=== PATIENT | male | born 1955 | race African-American/Black ===

== ENCOUNTER → 2019-10-30 | Outpatient (CLI) | payer MEDICAID ==
[~2019-10-30] MED LIST: B50 PO; CARV25TA47 PO; HYDR100T26 PO; OMEP20CA14 PO
== END | disposition home or self-care (01) ==
LOC: LAB 09:47
PROVIDERS: ATTEND Neurological Surgery
DX: Z01.818 Encounter for other preprocedural examination (principal); Z11.59 Encounter for screening for other viral diseases
CPT/HCPCS: C9803; U0003

== ENCOUNTER 2019-11-02 06:33 | Inpatient (IN) | payer MEDICAID ==
[~2019-11-02] VITALS: Ht 180.3 cm; Wt 86.2 kg
[2019-11-02] VITALS (55 sets, daily range): BP systolic 109–174; BP diastolic 61–104
[~2019-11-02 06:33] MED LIST changes: +LACTATED RINGERS 1,000 ML IV SCH
[2019-11-02] MEDS ORDERED: THROMBIN (BOVINE) 5000 UNITS/VIAL TOP ONE (06:43)
[2019-11-02] MEDS ORDERED: LIDOCAINE HCL/EPINEPHRINE 1%-EPI 1:100,000 20 ML VIAL ONE (06:43)
[2019-11-02] MEDS ORDERED: BACITRACIN 50,000 UNITS/VIAL ONE (06:44)
[2019-11-02] MEDS ORDERED: DEXAMETHASONE 4MG/ML 1ML VIAL ONE (07:30)
[2019-11-02] MEDS ORDERED: PROPOFOL 200MG/20ML VIAL IV ONE (07:30)
[2019-11-02] MEDS ORDERED: ROCURONIUM BROMIDE 10MG/ML VIAL 5ML IV ONE (07:30)
[2019-11-02] MEDS ORDERED: HYDROMORPHONE HCL/PF 2MG/ML (OR) ONE ×2 (07:31→08:16)
[2019-11-02] MEDS ORDERED: CEFAZOLIN SODIUM 1000MG/VIAL ONE (07:31)
[2019-11-02 07:41] LABS: PARTIAL THROMBOPLASTIN TIME 33.9 sec (23.4-31.0); PROTHROMBIN TIME 10.6 sec (9.6-11.0)
[2019-11-02 07:42] LABS: BASOPHILS % 0.9 % (0.0-2.0); EOSINOPHILS % 1.9 % (0.0-5.0); HEMATOCRIT. 35.8 % (42.0-52.0); HEMOGLOBIN. 12.2 g/dL (14.0-18.0); LYMPHOCYTES % 35.1 % (20.0-50.0); MEAN CORPUSCULAR HEMOGLOBIN 30.4 pg (28.0-32.0); MEAN CORPUSCULAR VOLUME 89.4 fL (80.0-94.0); MEAN PLATELET VOLUME 8.9 fl (7.4-10.4); MONOCYTES % 8.7 % (2.0-8.0); NEUTROPHILS % 53.4 % (40.0-76.0); PLATELET 169 x1000/uL (130-400); RED CELL DISTRIBUTION WIDTH 13.6 % (11.6-14.6)
[2019-11-02] MEDS ORDERED: HYDRALAZINE 20MG/ML VIAL ONE ×2 (08:11→10:00)
[2019-11-02] MEDS ORDERED: VECURONIUM BROMIDE 10 MG/VIAL IV ONE (08:19)
[2019-11-02 08:54] LABS: CLARITY URINE CLEAR (CLEAR); COLOR URINE YELLOW (YELLOW); KETONES URINE NEGATIVE (NEGATIVE); LEUKOCYTE ESTERASE URINE NEGATIVE (NEGATIVE); NITRITE URINE NEGATIVE (NEGATIVE); OCCULT BLOOD URINE NEGATIVE (NEGATIVE); PROTEIN URINE 3+ (NEGATIVE); SPECIFIC GRAVITY URINE 1.013 (1.005-1.030)
[2019-11-02] MEDS ORDERED: NEOSTIGMINE METHYLSULFATE 1MG/ML 10 ML VIAL ONE (09:15)
[2019-11-02] MEDS ORDERED: GLYCOPYRROLATE 0.2 MG/ML 2ML VIAL ONE (09:16)
[2019-11-02] MEDS: NICARDIPINE 100 MG in SODIUM CHLORIDE 0.9% 100 ML IV PRN ×2 (10:15→20:48)
[2019-11-02] MEDS ORDERED: IPRATROPIUM/ALBUTEROL 0.5-3(2.5)MG/3ML NEB HHN PRN (10:30)
[2019-11-02] MEDS ORDERED: ONDANSETRON HCL 4MG/2ML INJ IV PRN (10:30)
[2019-11-02] MEDS: DEXT 5%/LACTATED RINGERS 1,000 ML IV SCH ×2 (10:37→20:05)
[2019-11-02] MEDS: MORPHINE SULFATE 4 MG/ML CPJ (NOT FOR IM USE) IV PRN ×3 (10:50→20:04)
[2019-11-02] MEDS: DEXAMETHASONE 4MG/ML 1ML VIAL IV SCH ×3 (12:13→23:32)
[2019-11-02] MEDS ORDERED: CEFAZOLIN 1000MG PREMIX 50 ML IV SCH (14:00)
[2019-11-02] MEDS ORDERED: CEFAZOLIN SODIUM 1000MG/VIAL IV SCH (14:00)
[2019-11-02] MEDS: OMEPRAZOLE 20MG CAPSULE EXTENDED RELEASE PO SCH (17:00)
[2019-11-02] MEDS: CEFAZOLIN 1000MG PREMIX 50 ML IV SCH (17:52)
[2019-11-02] MEDS ORDERED: CARVEDILOL 12.5MG TABLET PO SCH (21:00)
[2019-11-02] MEDS ORDERED: HYDRALAZINE HCL 100MG TABLET PO SCH (21:00)
[2019-11-03] VITALS (68 sets, daily range): BP systolic 0–188; BP diastolic -1–142
[2019-11-03] MEDS: NICARDIPINE 100 MG in SODIUM CHLORIDE 0.9% 100 ML IV PRN ×2 (02:09→12:29)
[2019-11-03] MEDS: MORPHINE SULFATE 4 MG/ML CPJ (NOT FOR IM USE) IV PRN ×5 (02:10→21:19)
[2019-11-03] MEDS: DEXAMETHASONE 4MG/ML 1ML VIAL IV SCH (05:34)
[2019-11-03] MEDS: OMEPRAZOLE 20MG CAPSULE EXTENDED RELEASE PO SCH ×2 (05:34→16:45)
[2019-11-03] MEDS: CEFAZOLIN 1000MG PREMIX 50 ML IV SCH ×2 (06:31→18:11)
[2019-11-03] MEDS: DEXT 5%/LACTATED RINGERS 1,000 ML IV SCH ×3 (06:32→19:57)
[2019-11-03] MEDS: HYDRALAZINE HCL 100MG TABLET PO SCH ×2 (09:00→20:06)
[2019-11-03] MEDS: CARVEDILOL 12.5MG TABLET PO SCH ×2 (09:00→20:06)
[2019-11-03] MEDS ORDERED: DIPHENHYDRAMINE INJ IV PRN (10:00)
[2019-11-03] MEDS ORDERED: ONDANSETRON INJ IV PRN (10:00)
[2019-11-03] MEDS ORDERED: NALOXONE INJ IV PRN (10:00)
[2019-11-03] MEDS ORDERED: HYDROMORPHONE PCA 10MG/50ML IV PRN (10:00)
[2019-11-03] MEDS ORDERED: SODIUM CHLORIDE 0.9% 1,000 ML IV SCH (15:30)
[2019-11-03] MEDS: OXYCODONE HCL/ACETAMINOPHEN 5/325MG TABLET PO PRN (21:46)
[2019-11-03 22:05] LABS: HEPATITIS B SURFACE ANTIGEN NEGATIVE
[2019-11-04] VITALS: BP 140/71
[2019-11-04] MEDS: MORPHINE SULFATE 4 MG/ML CPJ (NOT FOR IM USE) IV PRN ×3 (00:35→11:58)
[2019-11-04 04:00] VITALS: BP 144/80
[2019-11-04 06:24] LABS: BASOPHILS % 0.1 % (0.0-2.0); HEMATOCRIT. 35.1 % (42.0-52.0); HEMOGLOBIN. 11.9 g/dL (14.0-18.0); LYMPHOCYTES % 8.8 % (20.0-50.0); MEAN CORPUSCULAR HEMOGLOBIN 30.4 pg (28.0-32.0); MEAN PLATELET VOLUME 9.1 fl (7.4-10.4); MONOCYTES % 3.2 % (2.0-8.0); NEUTROPHILS % 87.9 % (40.0-76.0); PLATELET 190 x1000/uL (130-400); RED CELL DISTRIBUTION WIDTH 13.6 % (11.6-14.6)
[2019-11-04] MEDS: CEFAZOLIN 1000MG PREMIX 50 ML IV SCH (06:35)
[2019-11-04] MEDS: OMEPRAZOLE 20MG CAPSULE EXTENDED RELEASE PO SCH ×2 (06:35→17:08)
[2019-11-04 06:37] LABS: CHLORIDE 104 mEq/L (98-107)
[2019-11-04] MEDS: OXYCODONE HCL/ACETAMINOPHEN 5/325MG TABLET PO PRN ×2 (06:41→17:38)
[2019-11-04 06:51] LABS: PHOSPHORUS 3.9 mg/dL (2.5-4.9)
[2019-11-04 08:00] VITALS: BP 145/89
[2019-11-04] MEDS: HYDRALAZINE HCL 100MG TABLET PO SCH ×2 (09:12→21:20)
[2019-11-04] MEDS: CARVEDILOL 12.5MG TABLET PO SCH ×2 (09:12→21:20)
[2019-11-04] MEDS: CLONIDINE 0.1MG TABLET PO PRN (11:56)
[2019-11-04 12:00] VITALS: BP 145/79
[2019-11-04 16:00] VITALS: BP 136/76
[2019-11-04] MEDS: LACTULOSE 20G/30ML UDC PO SCH ×2 (17:08→21:21)
[2019-11-04] MEDS: DOCUSATE SODIUM 100MG CAPSULE PO SCH (17:08)
[2019-11-04 20:00] VITALS: BP 137/87
[2019-11-04] MEDS: POLYETHYLENE GLYCOL 3350 (17GM) 1 DOSE PACK PO SCH (21:24)
[2019-11-05] VITALS: BP 159/90
[2019-11-05] MEDS: MORPHINE SULFATE 4 MG/ML CPJ (NOT FOR IM USE) IV PRN ×4 (00:16→21:20)
[2019-11-05] MEDS: CLONIDINE 0.1MG TABLET PO PRN ×4 (02:09→19:42)
[2019-11-05 04:00] VITALS: BP 162/69
[2019-11-05] MEDS: OXYCODONE HCL/ACETAMINOPHEN 5/325MG TABLET PO PRN ×2 (06:27→15:04)
[2019-11-05 06:49] LABS: BASOPHILS % 0.1 % (0.0-2.0); HEMATOCRIT. 35.4 % (42.0-52.0); HEMOGLOBIN. 11.9 g/dL (14.0-18.0); LYMPHOCYTES % 16.8 % (20.0-50.0); MEAN CORPUSCULAR HEMOGLOBIN 30.1 pg (28.0-32.0); MEAN CORPUSCULAR VOLUME 89.4 fL (80.0-94.0); MEAN PLATELET VOLUME 8.9 fl (7.4-10.4); NEUTROPHILS % 76.1 % (40.0-76.0); PLATELET 183 x1000/uL (130-400); RED BLOOD CELL COUNT 3.96 mill/uL (4.7-6.1); RED CELL DISTRIBUTION WIDTH 13.3 % (11.6-14.6)
[2019-11-05] MEDS: OMEPRAZOLE 20MG CAPSULE EXTENDED RELEASE PO SCH ×2 (06:50→17:43)
[2019-11-05 07:07] LABS: PHOSPHORUS 3.5 mg/dL (2.5-4.9)
[2019-11-05 08:00] VITALS: BP 182/12
[2019-11-05 08:07] LABS: HIV SCREEN 4G Non Reactive (Non Reactive)
[2019-11-05] MEDS ORDERED: AMLODIPINE 5MG TABLET PO SCH (09:00)
[2019-11-05] MEDS: DOCUSATE SODIUM 100MG CAPSULE PO SCH ×2 (10:33→17:43)
[2019-11-05] MEDS: LACTULOSE 20G/30ML UDC PO SCH (10:33)
[2019-11-05] MEDS: CARVEDILOL 12.5MG TABLET PO SCH ×2 (10:35→21:16)
[2019-11-05] MEDS: HYDRALAZINE HCL 100MG TABLET PO SCH ×2 (10:39→21:17)
[2019-11-05 12:00] VITALS: BP 161/104
[2019-11-05 13:10] LABS: A/G RATIO 0.8 (0.7-1.7); ALBUMIN 2.8 g/dL (2.9-4.4); ALPHA-1-GLOBULIN 0.2 g/dL (0.0-0.4); ALPHA-2-GLOBULIN 0.8 g/dL (0.4-1.0); BETA GLOBULIN 1.2 g/dL (0.7-1.3); GAMMA GLOBULINS 1.5 g/dL (0.4-1.8); GLOBULIN TOTAL 3.7 g/dL (2.2-3.9); M-SPIKE Not Observed g/dL (Not Observed); TOTAL PROTEIN SERUM 6.5 g/dL (6.0-8.5)
[2019-11-05 16:00] VITALS: BP 162/110
[2019-11-05 17:10] LABS: ANTI-DNA DOUBLE STRANDED QUANT 6 IU/mL (0-9); ANTI-NUCLEAR ANTIBODIES DIRECT Positive (Negative)
[2019-11-05 20:00] VITALS: BP 223/133
[2019-11-05] MEDS ORDERED: HYDRALAZINE 20MG/ML VIAL IV PRN (20:30)
[2019-11-05] MEDS ORDERED: HYDRALAZINE 5 MG in SODIUM CHLORIDE 0.9% 49.5 ML IV PRN (20:45)
[2019-11-05] MEDS: POLYETHYLENE GLYCOL 3350 (17GM) 1 DOSE PACK PO SCH ×2 (21:00→21:17)
[2019-11-06] VITALS: BP 148/101
[2019-11-06] MEDS: CLONIDINE 0.1MG TABLET PO PRN ×3 (01:32→12:53)
[2019-11-06] MEDS: OXYCODONE HCL/ACETAMINOPHEN 5/325MG TABLET PO PRN ×2 (01:46→09:29)
[2019-11-06 04:00] VITALS: BP 148/99
[2019-11-06 05:46] LABS: BASOPHILS % 0.3 % (0.0-2.0); EOSINOPHILS % 0.1 % (0.0-5.0); HEMATOCRIT. 37.4 % (42.0-52.0); HEMOGLOBIN. 12.6 g/dL (14.0-18.0); LYMPHOCYTES % 32.6 % (20.0-50.0); MEAN CORPUSCULAR HEMOGLOBIN 30.1 pg (28.0-32.0); MEAN CORPUSCULAR VOLUME 89.1 fL (80.0-94.0); MEAN PLATELET VOLUME 8.9 fl (7.4-10.4); MONOCYTES % 9.9 % (2.0-8.0); NEUTROPHILS % 57.1 % (40.0-76.0); PLATELET 167 x1000/uL (130-400); RED BLOOD CELL COUNT 4.19 mill/uL (4.7-6.1); RED CELL DISTRIBUTION WIDTH 13.4 % (11.6-14.6)
[2019-11-06 06:00] LABS: PHOSPHORUS 3.3 mg/dL (2.5-4.9)
[2019-11-06 08:00] VITALS: BP 124/98
[2019-11-06] MEDS: DOCUSATE SODIUM 100MG CAPSULE PO SCH ×2 (09:28→18:14)
[2019-11-06] MEDS: FAMOTIDINE 20MG TABLET PO SCH (09:28)
[2019-11-06] MEDS: AMLODIPINE 10MG TABLET PO SCH (09:28)
[2019-11-06] MEDS: HYDRALAZINE HCL 100MG TABLET PO SCH ×2 (09:29→20:53)
[2019-11-06] MEDS: CARVEDILOL 12.5MG TABLET PO SCH ×2 (09:29→20:53)
[2019-11-06 10:09] LABS: GLOMERULAR BASEMENT MEMB AB 14 units (0-20)
[2019-11-06 12:00] VITALS: BP 153/101
[2019-11-06] MEDS: MORPHINE SULFATE 4 MG/ML CPJ (NOT FOR IM USE) IV PRN ×2 (12:53→21:01)
[2019-11-06 13:07] LABS: ANTI-CARDIOLIPIN AB IGA < 9 APL U/mL (0-11); ANTI-CARDIOLIPIN AB IGG < 9 GPL U/mL (0-14); ANTI-CARDIOLIPIN AB IGM < 9 MPL U/mL (0-12)
[2019-11-06 15:06] LABS: ANTI-MYELOPEROXIDASE AB < 9.0 U/mL (0.0-9.0); ANTI-PROTEINASE 3 ABS < 3.5 U/mL (0.0-3.5)
[2019-11-06 16:00] VITALS: BP 144/96
[2019-11-06] MEDS: SPIRONOLACTONE 25MG TABLET PO SCH (18:14)
[2019-11-06 20:00] VITALS: BP 184/122
[2019-11-06] MEDS: POLYETHYLENE GLYCOL 3350 (17GM) 1 DOSE PACK PO SCH (20:53)
[2019-11-07] VITALS: BP 140/93
[2019-11-07] MEDS: MORPHINE SULFATE 4 MG/ML CPJ (NOT FOR IM USE) IV PRN ×2 (03:50→21:01)
[2019-11-07 04:00] VITALS: BP 135/88
[2019-11-07 06:29] LABS: BASOPHILS % 0.2 % (0.0-2.0); EOSINOPHILS % 0.5 % (0.0-5.0); HEMATOCRIT. 37.2 % (42.0-52.0); HEMOGLOBIN. 12.7 g/dL (14.0-18.0); MEAN CORPUSCULAR HEMOGLOBIN 30.1 pg (28.0-32.0); MEAN CORPUSCULAR VOLUME 88.7 fL (80.0-94.0); MEAN PLATELET VOLUME 8.9 fl (7.4-10.4); MONOCYTES % 9.9 % (2.0-8.0); NEUTROPHILS % 61.4 % (40.0-76.0); PLATELET 155 x1000/uL (130-400); RED CELL DISTRIBUTION WIDTH 13.4 % (11.6-14.6)
[2019-11-07 08:00] VITALS: BP 137/93
[2019-11-07] MEDS ORDERED: ONDANSETRON HCL 4MG TABLET PO NR (08:13)
[2019-11-07] MEDS: FAMOTIDINE 20MG TABLET PO SCH (09:25)
[2019-11-07] MEDS: AMLODIPINE 10MG TABLET PO SCH (09:25)
[2019-11-07] MEDS: SPIRONOLACTONE 25MG TABLET PO SCH (09:25)
[2019-11-07] MEDS: CARVEDILOL 12.5MG TABLET PO SCH ×2 (09:25→20:32)
[2019-11-07] MEDS: DOCUSATE SODIUM 100MG CAPSULE PO SCH ×2 (09:26→17:12)
[2019-11-07] MEDS: HYDRALAZINE HCL 100MG TABLET PO SCH ×2 (09:26→20:33)
[2019-11-07] MEDS: OXYCODONE HCL/ACETAMINOPHEN 5/325MG TABLET PO PRN ×2 (09:26→17:20)
[2019-11-07 12:00] VITALS: BP 138/92
[2019-11-07 16:00] VITALS: BP 147/97
[2019-11-07 20:00] VITALS: BP 172/100
[2019-11-07] MEDS: POLYETHYLENE GLYCOL 3350 (17GM) 1 DOSE PACK PO SCH (20:33)
[2019-11-07] MEDS ORDERED: ZOLPIDEM TARTRATE 5MG TABLET PO PRN (22:45)
[2019-11-08] VITALS (7 sets, daily range): BP systolic 126–170; BP diastolic 71–108
[2019-11-08] MEDS: OXYCODONE HCL/ACETAMINOPHEN 5/325MG TABLET PO PRN ×4 (02:59→21:09)
[2019-11-08 07:07] LABS: BASOPHILS % 0.1 % (0.0-2.0); EOSINOPHILS % 1.2 % (0.0-5.0); HEMATOCRIT. 35.1 % (42.0-52.0); HEMOGLOBIN. 11.8 g/dL (14.0-18.0); LYMPHOCYTES % 31.1 % (20.0-50.0); MEAN CORPUSCULAR HEMOGLOBIN 30.2 pg (28.0-32.0); MEAN CORPUSCULAR VOLUME 89.4 fL (80.0-94.0); MEAN PLATELET VOLUME 9.1 fl (7.4-10.4); MONOCYTES % 11.1 % (2.0-8.0); NEUTROPHILS % 56.5 % (40.0-76.0); PLATELET 151 x1000/uL (130-400); RED BLOOD CELL COUNT 3.93 mill/uL (4.7-6.1); RED CELL DISTRIBUTION WIDTH 13.2 % (11.6-14.6)
[2019-11-08 07:23] LABS: CHLORIDE 99 mEq/L (98-107)
[2019-11-08 07:34] LABS: PHOSPHORUS 3.1 mg/dL (2.5-4.9)
[2019-11-08] MEDS: FAMOTIDINE 20MG TABLET PO SCH (08:29)
[2019-11-08] MEDS: AMLODIPINE 10MG TABLET PO SCH (08:29)
[2019-11-08] MEDS: DOCUSATE SODIUM 100MG CAPSULE PO SCH ×2 (08:30→17:30)
[2019-11-08] MEDS: HYDRALAZINE HCL 100MG TABLET PO SCH ×3 (08:30→17:30)
[2019-11-08] MEDS: SPIRONOLACTONE 25MG TABLET PO SCH (08:30)
[2019-11-08] MEDS: CARVEDILOL 12.5MG TABLET PO SCH ×2 (09:30→21:09)
[2019-11-08] MEDS ORDERED: ONDANSETRON HCL 4MG/2ML INJ IV PRN (18:15)
[2019-11-08] MEDS: POLYETHYLENE GLYCOL 3350 (17GM) 1 DOSE PACK PO SCH (21:09)
[2019-11-09] VITALS: BP 149/95
[2019-11-09 04:00] VITALS: BP 151/90
[2019-11-09 08:00] VITALS: BP 165/107
[2019-11-09] MEDS: FAMOTIDINE 20MG TABLET PO SCH (08:43)
[2019-11-09] MEDS: DOCUSATE SODIUM 100MG CAPSULE PO SCH ×2 (08:43→16:46)
[2019-11-09] MEDS: SPIRONOLACTONE 25MG TABLET PO SCH (08:57)
[2019-11-09] MEDS: HYDRALAZINE HCL 100MG TABLET PO SCH ×3 (08:58→16:47)
[2019-11-09] MEDS: AMLODIPINE 10MG TABLET PO SCH (08:58)
[2019-11-09] MEDS: CARVEDILOL 12.5MG TABLET PO SCH (08:58)
[2019-11-09] MEDS: MORPHINE SULFATE 4 MG/ML CPJ (NOT FOR IM USE) IV PRN (09:02)
[2019-11-09] MEDS ORDERED: OXYCODONE HCL/ACETAMINOPHEN 5/325MG TABLET PO PRN (11:15)
[2019-11-09] MEDS ORDERED: POLYETHYLENE GLYCOL 3350 (17GM) 1 DOSE PACK PO PRN (11:30)
[2019-11-09 13:12] LABS: ATYPICAL P-ANCA <1:20 titer (Neg:<1:20); CYTOPLASMIC C-ANCA <1:20 titer (Neg:<1:20); PERINUCLEAR P-ANCA <1:20 titer (Neg:<1:20)
[2019-11-09] MEDS ORDERED: LACTULOSE 20G/30ML UDC PO NR (14:00)
[2019-11-09] MEDS ORDERED: DOCU-150 PO (15:07)
[2019-11-09] MEDS ORDERED: AMLO10TA80 PO (15:07)
[2019-11-09] MEDS ORDERED: COR12 PO (15:07)
[2019-11-09] MEDS ORDERED: FAMO20TA8 PO (15:08)
[2019-11-09] MEDS ORDERED: ALD50 PO (15:08)
[2019-11-09] MEDS ORDERED: HYDR100T26 PO (15:08)
[2019-11-09 19:03] VITALS: BP 155/93
[2019-11-10 07:07] LABS: ANA IFA Negative (.)
[2019-11-10] MEDS ORDERED: SPIRONOLACTONE 50MG TABLET PO SCH (09:00)
== END 2019-11-09 19:21 | DRG 321 ==
LOC: OR 06:33 → MICUNO 06:34 → 6EST 11-03 19:20
PROVIDERS: ADMIT Internal Medicine; ATTEND Internal Medicine
PROC: 0RG2071 Fusion of 2 or more Cervical Vertebral Joints with Autologous Tissue Substitute, Posterior Approach, Posterior Column, Open Approach (ICD-10-PCS; principal; 2019-11-02)
PROC: 00NW0ZZ Release Cervical Spinal Cord, Open Approach (ICD-10-PCS; 2019-11-02)
DX: M48.02 Spinal stenosis, cervical region (principal); M54.12 Radiculopathy, cervical region; M47.9 Spondylosis, unspecified; G82.50 Quadriplegia, unspecified; N17.0 Acute kidney failure with tubular necrosis; G95.9 Disease of spinal cord, unspecified; I12.9 Hypertensive chronic kidney disease with stage 1 through stage 4 chronic kidney disease, or unspecified chronic kidney disease; K21.9 Gastro-esophageal reflux disease without esophagitis; N18.4 Chronic kidney disease, stage 4 (severe); D64.9 Anemia, unspecified; B19.20 Unspecified viral hepatitis C without hepatic coma; E87.1 Hypo-osmolality and hyponatremia; F11.20 Opioid dependence, uncomplicated; G47.00 Insomnia, unspecified; K59.00 Constipation, unspecified; F14.10 Cocaine abuse, uncomplicated; E46 Unspecified protein-calorie malnutrition; M48.061 Spinal stenosis, lumbar region without neurogenic claudication; N28.1 Cyst of kidney, acquired; N40.0 Benign prostatic hyperplasia without lower urinary tract symptoms; G89.4 Chronic pain syndrome; Z87.891 Personal history of nicotine dependence; Z68.26 Body mass index [BMI] 26.0-26.9, adult; Z03.818 Encounter for observation for suspected exposure to other biological agents ruled out; G99.2 Myelopathy in diseases classified elsewhere
CPT/HCPCS: 36415; 72040; 72141; 76000; 76705; 76770; 80048; 80053; 81003; 83036; 83520; 83735; 84100; 84155; 84165; 85025; 86038; 86147; 86160; 86225; 86256; 86803; 86850; 86900; 87340; 87389; 87635; 88304; 88311; 92610; 93005; 95863; 95925; 95926; 95928; 95929; 95940; 97116; 97162; 97166; 97530; 97535; C1713; J0360; J0690; J1100; J1170; J2270; J2405; J2704; J2710; J3490; J7050; J7121; Q0162